=== PATIENT | female | born 1965 | race Caucasian/White ===

== ENCOUNTER 2019-11-23 12:16 | Emergency (ER) | payer OTHER ==
--- NOTE | 2019-11-23 12:39 | EDM.PDOC ---
ED HPI GENERAL MEDICAL PROBLEM - General Chief Complaint: Cardiovascular Problem Stated Complaint: BUZZING IN CHEST Time Seen by Provider: 11/23/19 12:18 Source of Information: Reports: Patient History Limitations: Reports: No Limitations - History of Present Illness INITIAL COMMENTS - FREE TEXT/NARRATIVE: Patient HISTORY OF PRESENT ILLNESS: Patient is a 54-year-old female with history of cardiomyopathy, CHF status post defibrillator placement 2012. States that defibrillator was placed preventatively as [place], [place]. For the past 2 days she has felt a buzzing sensation in her chest occurring approximately once every 10 seconds and lasting less than a second. She denies any chest pain or dyspnea. No increased swelling to her lower extremities. No recent fevers or chills. She states that she has been using stretch bands more frequently over the past 2 to 3 days but otherwise has incurred no recent trauma or falls. Denies any syncope. No medications. Is otherwise been in normal state of health. Her assembler resides in [place]. She last had it interrogated approximately 6 weeks ago and was found to be normal. She phoned her assembler who instructed her to have it interrogated and that the most expedient way to do so would be to come to the emergency room here. REVIEW OF SYSTEMS: Other than the symptoms associated with the present events, the following is reported with regard to recent health: General: (-) fever. HENT: (-) congestion. Respiratory: (-) cough. Cardiovascular: (-) chest pain. (+) "buzzing" sensation in chest GI: (-) abdominal pain. : (-) urinary complaints. Musculoskeletal: (-) other aches or pains. Endocrine: (-) generalized weakness. Neurological: (-) localized weakness. Skin: (-) rash PAST MEDICAL HISTORY: reviewed as per nursing notes SOCIAL HISTORY: reviewed as per nursing notes, MEDICATIONS: Per nurse's note ALLERGIES: Per nurse's note, reviewed by me PHYSICAL EXAMINATION: GENERALIZED APPEARANCE: well developed, well nourished in no distress VITAL SIGNS: Per nurse's note, reviewed by me SKIN: Warm, dry; (-) cyanosis; (-) rash. HEAD: (-) scalp swelling, (-) tenderness. EYES: (-) conjunctival pallor, (-) scleral icterus. ENMT: (-) stridor; mucous membranes moist. NECK: (-) tenderness, (-) stiffness, CHEST AND RESPIRATORY: (-) rales, (-) rhonchi, (-) wheezes; breath sounds equal bilaterally. HEART AND CARDIOVASCULAR: (-) irregularity; (-) murmur, (-) gallop. no "buzzing" heard while auscultation performed, and pt denies any event even while stethoscope applied to chest for over 1 min. However, states while at home this occurs q 10 sec. ABDOMEN AND GI: Soft; (-) tenderness, (-) guarding, (-) rebound, (-) palpable masses, EXTREMITIES: (-) deformity, (-) edema. NEURO AND PSYCH: Alert. Cranial nerves grossly intact; strength symmetric. gait steady DIAGNOSTICS: EKG: nsr at 78 bpm. lad. lvh. no acute st elevation. CXR: as read by radiologist, reviewed by myself EMERGENCY DEPARTMENT COURSE AND TREATMENT: Patient's condition remained stable during Emergency Department evaluation. AICD interrogated by [employer] : no events, no issues noted. Pt hemodynamically stable, no firing. No acute cardiac abnormalities here. To f/u with assembler here in [place] (given referral) in 1-2 days. Given discharge precautions. PLAN AND FOLLOW-UP: Patient received written and verbal instructions regarding this condition. Return to ED immediately with any new or worsening symptoms. Follow up to be arranged by patient with pcp in 1-2 days for further evaluation. Given discharge precautions. patient expressed verbal understanding. - Related Data Allergies Allergy/AdvReac Type Severity Reaction Status Date / Time morphine Allergy Anaphylactic Verified 11/23/19 12:24 Shock Home Meds: Home Meds Carvedilol [Coreg] 1 tab PO BID 11/23/19 [History] DULoxetine HCl [Cymbalta] 1 tab PO DAILY 11/23/19 [History] DULoxetine [Cymbalta] 1 tab PO DAILY 11/23/19 [History] Diclofenac Sodium 1 tab PO DAILY 11/23/19 [History] Furosemide [Lasix] 1 tab PO DAILY 11/23/19 [History] Hydrocodone/Acetaminophen [[place] 10-325 Tablet] 1 tab PO ASDIRECTED PRN [History] Ivabradine HCl [Corlanor] 1 tab PO BID 11/23/19 [History] Non-Formulary Medication [NF Drug] 1 tab PO DAILY 11/23/19 [History] Sacubitril/Valsartan [Entresto 24 mg-26 mg Tablet] 1 tab PO BID 11/23/19 [ History] Spironolactone [Aldactone] 1 tab PO DAILY 11/23/19 [History] metFORMIN [Glucophage XR] 1 tab PO BID 11/23/19 [History] tiZANidine [Zanaflex] 1 tab PO DAILY 11/23/19 [History] Past Medical History Cardiovascular History: Reports: Cardiomyopathy, Heart Failure Gastrointestinal History: Reports: Irritable Bowel Syndrome HR ANALYST History: Reports: Endocrine/Metabolic History: Reports: Diabetes, Type II - Past Surgical History Cardiovascular Surgical History: Reports: Other (See Below) Other Cardiovascular Surgeries/Procedures: defibrillator placement GI Surgical History: Reports: Appendectomy Female Surgical History: Reports: Hysterectomy Musculoskeletal Surgical History: Reports: Other (See Below) Other Musculoskeletal Surgeries/Procedures:: back surgery x6, knee replacement R knee Social & Family History - Tobacco Use Smoking Status *Q: Never Smoker - Recreational Drug Use Recreational Drug Use: No ED ROS GENERAL - Review of Systems Review Of Systems: See Below (see dictation) ED EXAM, GENERAL - Physical Exam Exam: See Below (see dictation) Course - Vital Signs Last Recorded V/S: Last Vital Signs Temp 97.6 F 11/23/19 12:22 Pulse 86 11/23/19 14:04 Resp 16 11/23/19 14:04 BP 136/85 11/23/19 14:04 Pulse Ox 98 11/23/19 12:22 - Orders/Labs/Meds Orders: Active Orders 24 hr Category Date Time Status EKG Documentation Completion [RC] STAT Care 11/23/19 12:34 Active Labs: Laboratory Tests 11/23/19 11/23/19 Range/Units 13:47 13:47 WBC 8.63 (4.0-11.0) K/uL RBC 4.84 (4.30-5.90) M/uL Hgb 14.7 (12.0-16.0) g/dL Hct 44.9 (36.0-46.0) % MCV 92.8 (80.0-98.0) fL MCH 30.4 (27.0-32.0) pg MCHC 32.7 (31.0-37.0) g/dL RDW Std Deviation 48.2 (28.0-62.0) fl RDW Coeff of [place]very 14 (11.0-15.0) % Plt Count 260 (150-400) K/uL MPV 10.70 (7.40-12.00) fL Neut % (Auto) 78.7 (48.0-80.0) % Lymph % (Auto) 12.7 L (16.0-40.0) % [place] % (Auto) 7.6 (0.0-15.0) % Eos % (Auto) 0.8 (0.0-7.0) % Baso % (Auto) 0.2 (0.0-1.5) % Neut # (Auto) 6.8 H (1.4-5.7) K/uL Lymph # (Auto) 1.1 (0.6-2.4) K/uL [place] # (Auto) 0.7 (0.0-0.8) K/uL Eos # (Auto) 0.1 (0.0-0.7) K/uL Baso # (Auto) 0.0 (0.0-0.1) K/uL Nucleated RBC % 0.0 /100WBC Nucleated RBCs # 0 K/uL Sodium 140 (136-145) mmol/L Potassium 3.8 (3.5-5.1) mmol/L Chloride 100 (98-107) mmol/L Carbon Dioxide 29.6 (21.0-32.0) mmol/L BUN 16 (7.0-18.0) mg/dL Creatinine 0.7 (0.6-1.0) mg/dL Est Cr Clr Drug Dosing 87.01 mL/min Estimated GFR (MDRD) > 60.0 ml/min Glucose 177 H (74-106) mg/dL Calcium 9.1 (8.5-10.1) mg/dL Total Bilirubin 0.3 (0.2-1.0) mg/dL AST 21 (15-37) IU/L ALT 35 (14-63) IU/L Alkaline Phosphatase 66 (46-116) U/L Troponin I < 0.050 (0.000-0.056) ng/mL Total Protein 7.6 (6.4-8.2) g/dL Albumin 3.9 (3.4-5.0) g/dL Globulin 3.7 (2.6-4.0) g/dL Albumin/Globulin Ratio 1.1 (0.9-1.6) Departure - Departure Time of Disposition: 14:56 Disposition: Home, Self-Care 01 Condition: Good Clinical Impression: AICD (automatic cardioverter/defibrillator) present Instructions: Cardioverter Defibrillator Implantation, Care After Referrals: Keshav Garcia MD [Primary Care Provider] - Billy Calderon MD [Physician] - 2 Days Forms: ED Department Discharge Additional Instructions: The following information is given to patients seen in the emergency department who are being discharged to home. This information is to outline your options for follow-up care. We provide all patients seen in our emergency department with a follow-up referral. The need for follow-up, as well as the timing and circumstances, are variable depending upon the specifics of your emergency department visit. If you don't have a primary care physician on staff, we will provide you with a referral. We always advise you to contact your personal physician following an emergency department visit to inform them of the circumstance of the visit and for follow-up with them and/or the need for any referrals to a consulting specialist. The emergency department will also refer you to a specialist when appropriate. This referral assures that you have the opportunity for follow-up care with a specialist. All of these measure are taken in an effort to provide you with optimal care, which includes your follow-up. Under all circumstances we always encourage you to contact your private physician who remains a resource for coordinating your care. When calling for follow-up care, please make the office aware that this follow-up is from your recent emergency room visit. If for any reason you are refused follow-up, please contact the [facility] Emergency Department at and asked to speak to the emergency department charge nurse. Sepsis Event Note - Evaluation Sepsis Screening Result: No Definite Risk - Focused Exam Vital Signs: Vital Signs Temp Pulse Resp BP Pulse Ox 11/23/19 14:04 86 16 136/85 11/23/19 12:22 97.6 F 90 16 132/42 L 98 Date Exam was Performed: 11/23/19 Time Exam was Performed: 17:59 - My Orders Last 24 Hours: My Active Orders 11/23/19 12:34 EKG Documentation Completion [RC] STAT - Assessment/Plan Last 24 Hours: My Active Orders 11/23/19 12:34 EKG Documentation Completion [RC] STAT
--- NOTE | 2019-11-23 13:24 | CR ---
Chest: 2 views of the chest were obtained. Comparison: No prior chest imaging. AICD is noted. Previous cervical spine surgery is seen. Lungs are clear with no acute parenchymal change. Slight degenerative change is scattered within the spine. Impression: 1. Findings as noted above. 2. Nothing acute is appreciated on 2 view chest x-ray. Diagnostic code #2 Study was dictated in [place] Standard Time
[2019-11-23 14:38] LABS: BLOOD UREA NITROGEN,BUN 16 mg/dL (7.0-18.0); CARBON DIOXIDE,CO2 29.6 mmol/L (21.0-32.0); CHLORIDE,CL 100 mmol/L (98-107); GLUCOSE RANDOM 177 mg/dL (74-106); POTASSIUM,K 3.8 mmol/L (3.5-5.1); SODIUM,NA 140 mmol/L (136-145)
== END 2019-11-23 15:19 | disposition home or self-care (01) ==
LOC: MW.ED 12:16
DX: Z45.02 Encounter for adjustment and management of automatic implantable cardiac defibrillator (principal); E11.9 Type 2 diabetes mellitus without complications; I50.9 Heart failure, unspecified; Z79.84 Long term (current) use of oral hypoglycemic drugs; Z79.899 Other long term (current) drug therapy; Z88.6 Allergy status to analgesic agent; Z95.810 Presence of automatic (implantable) cardiac defibrillator
CPT/HCPCS: 36415; 71046; 71046-26; 80053; 84484; 85025; 93005; 99284; 99284-25